=== PATIENT | female | born 1985 | race Caucasian/White ===

== ENCOUNTER 2022-10-08 22:21 | Emergency (ER) | payer MEDICAID ==
[~2022-10-08] VITALS: Ht 175.3 cm; Wt 65.1 kg
[2022-10-08 23:32] LABS: CLARITY URINE CLEAR (CLEAR); COLOR URINE YELLOW (YELLOW); KETONES URINE TRACE (NEGATIVE); LEUKOCYTE ESTERASE URINE NEGATIVE (NEGATIVE); NITRITE URINE NEGATIVE (NEGATIVE); OCCULT BLOOD URINE NEGATIVE (NEGATIVE); PROTEIN URINE TRACE (NEGATIVE); SPECIFIC GRAVITY URINE 1.019 (1.005-1.030)
[2022-10-08 23:33] LABS: BASOPHILS % 3.1 % (0.0-2.0); EOSINOPHILS % 3.2 % (0.0-5.0); HEMATOCRIT. 32.5 % (36.0-48.0); HEMOGLOBIN. 10.1 g/dL (12.0-16.0); LYMPHOCYTES % 59.1 % (20.0-50.0); MEAN CORPUSCULAR HEMOGLOBIN 24.4 pg (28.0-32.0); MEAN CORPUSCULAR VOLUME 78.5 fL (81.0-99.0); MEAN PLATELET VOLUME 10.6 fl (7.4-10.4); MONOCYTES % 11.4 % (2.0-8.0); NEUTROPHILS % 23.2 % (40.0-76.0); PLATELET 91 x1000/uL (130-400); RED BLOOD CELL COUNT 4.13 mill/uL (4.2-5.4); RED CELL DISTRIBUTION WIDTH 23.4 % (11.6-14.6)
[2022-10-08 23:40] LABS: CHLORIDE 111 mEq/L (98-107)
[2022-10-08 23:42] LABS: *AMPHETAMINES SCREEN URINE NEGATIVE (NEGATIVE); *BARBITURATES SCREEN URINE NEGATIVE (NEGATIVE); *BENZODIAZEPINES SCREEN URINE NEGATIVE (NEGATIVE); *COCAINE SCREEN URINE NEGATIVE (NEGATIVE); METHADONE URINE SCREEN NEGATIVE (NEGATIVE); OPIATES URINE SCREEN NEGATIVE (NEGATIVE); PHENCYCLIDINE URINE SCREEN NEGATIVE (NEGATIVE)
[2022-10-08 23:46] LABS: CANNABINOID URINE SCREEN PRESUMTIVE POSITIVE (NEGATIVE)
[2022-10-08 23:47] LABS: ETHANOL BLOOD 210 mg/dL
[2022-10-08 23:56] LABS: PLATELET ESTIMATE DECREASED
[2022-10-09] MEDS ORDERED: CHLORDIAZEPOXIDE 25MG CAPSULE PO ONE (01:15)
[2022-10-09] MEDS ORDERED: ONDANSETRON 4MG ODT PO ONE (01:15)
[2022-10-09] MEDS ORDERED: ONDANSETRON 4MG ODT PO NR (06:15)
[2022-10-09] MEDS ORDERED: CHLORDIAZEPOXIDE 25MG CAPSULE PO NR (06:15)
[2022-10-09] MEDS: VENLAFAXINE HCL 37.5MG SR CAPSULE 24HR PO SCH (13:27)
[2022-10-09] MEDS ORDERED: LORAZEPAM 1MG TABLET PO ONE (22:15)
[2022-10-10] MEDS: VENLAFAXINE HCL 37.5MG SR CAPSULE 24HR PO SCH (09:23)
[2022-10-10 20:00] VITALS: BP 119/79
[2022-10-10] MEDS ORDERED: DIPHENHYDRAMINE 25MG CAPSULE PO ONE (21:45)
== END 2022-10-10 22:42 | disposition short-term general hospital (02) ==
LOC: ER 22:21
DX: R45.851 Suicidal ideations (principal); F10.229 Alcohol dependence with intoxication, unspecified; Y90.7 Blood alcohol level of 200-239 mg/100 ml; F32.9 Major depressive disorder, single episode, unspecified; Z20.822 Contact with and (suspected) exposure to COVID-19
CPT/HCPCS: 36415; 80053; 80305; 80307; 80320; 80329; 81003; 81025; 83690; 85025; 87426; 99285; C9803; Q0162; G0480